=== PATIENT | male | born 1980 | race Caucasian/White ===

== ENCOUNTER 2019-02-13 18:00 | Emergency (ER) | payer BC ==
[2019-02-13] MEDS ORDERED: Pantoprazole 40 MG Tab.CR PO ONE (18:01)
[2019-02-13 18:48] LABS: CHLORIDE,CL 104 mEq/L (98-106); SODIUM,NA 141 mEq/L (136-145)
[2019-02-13] MEDS ORDERED: Aspirin 81 MG Tab.Chew PO ONE (18:48)
--- NOTE | 2019-02-13 18:53 | EDM.PDOC ---
ED HPI GENERAL MEDICAL PROBLEM - General Chief Complaint: Cardiovascular Problem Stated Complaint: heart attack symptoms Time Seen by Provider: 02/13/19 18:47 Source of Information: Reports: Patient History Limitations: Reports: No Limitations - History of Present Illness INITIAL COMMENTS - FREE TEXT/NARRATIVE: Som is a 39 year old male who presents to the ED with c/o episode of substernal chest pain and left arm numbness. Reports he was taking a nap and was lying on his arm, woke up and his left arm was numb and he had chest pain. He reports onset at 1730. Arm numbness has since resolved. Reports he still feels a little bit of chest pain but nothing significant. Did also have some dizziness described as lightheaded. He reports this has also subsided.Also reports shortness of breath, but nothnig more than baseline. He reports he is a 1 ppd smoker and always has a chronic cough. He has no known PMH, but reports he doesn't go to the doctor regularly. Is unsure if he has ever had his cholesterol checked. Denies any N/V/D, abdominal pain, neck pain, back pain. Reports prior to this he was feeling well. Chest Pain Score (Numeric/FACES): 2 - Related Data Allergies Allergy/AdvReac Type Severity Reaction Status Date / Time No Known Allergies Allergy Verified 02/13/19 18:35 Home Meds: Home Meds Pantoprazole Sodium [Protonix] 40 mg PO DAILY #30 tablet. 02/13/19 [Rx] Past Medical History - Past Health History Medical/Surgical History: Denies Medical/Surgical History Social & Family History - Family History Family Medical History: Noncontributory - Tobacco Use Smoking Status *Q: Current Every Day Smoker Years of Tobacco use: 20 Packs/Tins Daily: 1 - Caffeine Use Caffeine Use: Reports: Energy Drinks - Recreational Drug Use Recreational Drug Use: No ED ROS GENERAL - Review of Systems Review Of Systems: ROS reveals no pertinent complaints other than HPI. ED EXAM, GENERAL - Physical Exam Exam: See Below Exam Limited By: No Limitations General Appearance: Alert, WD/WN, No Apparent Distress Eye Exam: Bilateral Eye: EOMI, Normal Fundi, Normal Inspection, PERRL Head: Atraumatic, Normocephalic Neck: Normal Inspection, Supple, Non-Tender, Full Range of Motion Respiratory/Chest: No Respiratory Distress, Lungs Clear, Normal Breath Sounds, No Accessory Muscle Use, Chest Non-Tender Cardiovascular: Normal Peripheral Pulses, Regular Rate, Rhythm, No Edema, No Gallop, No JVD, No Murmur, No Rub GI/Abdominal: Normal Bowel Sounds, Soft, No Organomegaly, No Distention, No Abnormal Bruit, No Mass, Pelvis Stable, Tender (epigastrc area), Hernia (ventral ) Back Exam: Normal Inspection, Full Range of Motion, NT Extremities: Normal Inspection, Normal Range of Motion, Non-Tender, Normal Capillary Refill, No Pedal Edema Neurological: Alert, Oriented, CN II-XII Intact, Normal Cognition, Normal Gait, Normal Reflexes, No Motor/Sensory Deficits Psychiatric: Normal Affect, Normal Mood Skin Exam: Warm, Dry, Intact, Normal Color, No Rash EKG INTERPRETATION EKG Date: 02/13/19 Rhythm: NSR [place]: Normal P-Wave: Present QRS: Normal ST-T: Normal QT: Normal Comparison: NA - No Prior EKG Course - Vital Signs Last Recorded V/S: Last Vital Signs Temp 99.7 F 02/13/19 19:04 Pulse 92 02/13/19 19:04 Resp 14 02/13/19 19:04 BP 133/89 02/13/19 19:04 Pulse Ox 97 02/13/19 19:04 - Orders/Labs/Meds Labs: Laboratory Tests 02/13/19 02/13/19 02/13/19 Range/Units 18:30 18:30 18:30 WBC 9.1 (5.0-10.0) 10^3/uL RBC 5.02 (4.50-6.00) 10^6/uL Hgb 16.5 (14.0-18.0) g/dL Hct 46.1 (40.0-54.0) % MCV 91.8 (82.0-94.0) fL MCH 32.9 H (27.0-32.0) pg MCHC 35.8 (33.0-38.0) g/dL RDW Coeff of Helder 12.6 (11.0-15.0) % Plt Count 205 (150-400) 10^3/uL Neut % (Auto) 52.9 (35-85) % Lymph % (Auto) 38.0 (10-55) % [place] % (Auto) 6.7 (0-16) % Eos % (Auto) 2.1 (0-5) % Baso % (Auto) 0.3 (0-3) % Neut # (Auto) 4.81 (1.80-7.00) 10^3/uL Lymph # (Auto) 3.45 (1.00-4.80) 10^3/uL [place] # (Auto) 0.61 (0.00-0.80) 10^3/uL Eos # (Auto) 0.19 (0.00-0.45) 10^3/uL Baso # (Auto) 0.03 10^3/uL PT 10.2 (9.7-12.3) SEC INR 0.99 (0.92-1.18) APTT 25.7 (23.2-32.3) SEC Sodium 141 (136-145) mEq/L Potassium 4.3 (3.5-5.0) mEq/L Chloride 104 (98-106) mEq/L Carbon Dioxide 26 (21-32) mmol/L BUN 20 H (7-18) mg/dL Creatinine 1.2 (0.7-1.3) mg/dL Est Cr Clr Drug Dosing 91.61 mL/min Estimated GFR (MDRD) > 60 (>=60) mL/min Glucose 115 H (75-99) mg/dL Calcium 8.7 (8.4-10.1) mg/dL Lactate Dehydrogenase 131 (100-190) U/L Creatine Kinase 101 (35-232) U/L Troponin I < 0.017 (0.00-0.06) ng/mL Meds: Medications Discontinued Medications Generic Name Dose Route Start Last Admin Trade Name Freq PRN Reason Stop Dose Admin Aspirin 324 mg 02/13/19 18:48 02/13/19 18:22 Aspirin PO 02/13/19 18:49 324 mg ONETIME ONE Administration Pantoprazole Sodium 40 mg 02/13/19 19:08 02/13/19 19:12 Protonix Iv IVPUSH 02/13/19 19:09 40 mg ONETIME ONE Administration Pantoprazole Sodium 1 packet 02/13/19 19:14 02/13/19 19:17 Take Home: Pantoprazole 40 Mg, 1 Tab Pack PO 02/13/19 19:15 1 packet ONETIME ONE Administration Departure - Departure Time of Disposition: 19:08 Disposition: Home, Self-Care 01 Condition: Good Clinical Impression: Atypical chest pain, Lung nodule GERD (gastroesophageal reflux disease) Qualifiers: Esophagitis presence: esophagitis presence not specified Qualified Code(s): K21.9 - Gastro-esophageal reflux disease without esophagitis Prescriptions: Pantoprazole Sodium [Protonix] 40 mg PO DAILY #30 tablet.dr Instructions: Food Choices for Gastroesophageal Reflux Disease, Adult, Gastroesophageal Reflux Disease, Adult, [id number] Referrals: PCP,None [Primary Care Provider] - Forms: ED Department Discharge Additional Instructions: 1) Protonix daily to see if this improves chest pain 2) Avoid greasy/spicy foods, caffeine, and alcohol as these can worsen reflux 3) Recommend Symbicort twice daily 4) Chest xray shows 11 mm nodule of left mid lung. Will need chest CT. Recommend f/u out patient for this. 5) Follow up next week in clinic for recheck. Recommend patient has cholesterol checked. 6) Return to ED for any worsening symptoms or any other emergent needs
[2019-02-13] MEDS ORDERED: Pantoprazole 40 MG Vial IVPUSH ONE (19:08)
[2019-02-13] MEDS ORDERED: Take Home: Pantoprazole 40 MG Tab.CR, 1 Tab Pack PO ONE (19:14)
== END 2019-02-13 19:21 | disposition home or self-care (01) ==
LOC: CC.ED 18:00
DX: K21.9 Gastro-esophageal reflux disease without esophagitis (principal); R91.1 Solitary pulmonary nodule; F17.210 Nicotine dependence, cigarettes, uncomplicated; Z79.899 Other long term (current) drug therapy
CPT/HCPCS: 36415; 71046; 80048; 82550; 83615; 84484; 85025; 85610; 85730; 93005; 96374; 99285-25; A9270-GY; C9113

== ENCOUNTER 2021-07-11 06:38 | Emergency (ER) | payer BC ==
[2021-07-11] MEDS ORDERED: Ketorolac 30 MG/ML SDV IVPUSH ONE (06:47)
[2021-07-11] MEDS ORDERED: Sodium Chloride 0.9% 1,000 ML IV ONE (06:47)
[2021-07-11] MEDS ORDERED: Tamsulosin 0.4 MG Cap.ER PO ONE (07:29)
--- NOTE | 2021-07-11 07:35 | EDM.PDOC ---
ED HPI GENERAL MEDICAL PROBLEM - General Chief Complaint: Genitourinary Problem Stated Complaint: ?kidney stone Time Seen by Provider: 07/11/21 07:15 Source of Information: Reports: Patient History Limitations: Reports: No Limitations - History of Present Illness INITIAL COMMENTS - FREE TEXT/NARRATIVE: Som is a 41 yo male who presents to the ED with concerns of possible kidney stone. States the last couple of days it has been difficult for him to urinate. Denies any dysuria or blood in his urine. States he did have some left sided flank pain. Around 2 oclock this morning he woke up to worsening flank pain that radiated around to his groin. No prior history of kidney stones. Upon arrival pain was a 5 out of 10 but was worse earlier this morning. Patient did take ibuprofen and beano at home without relief. States he took 3 hot tub baths which did make it feel a little better. Bowel movements have been fairly normal. Upon my arrival pain is barely noticeable after being given the Toradol. Treatments [employer]: Reports: NSAIDS Left Flank Pain Score (Numeric/FACES): 2 - Related Data Allergies Allergy/AdvReac Type Severity Reaction Status Date / Time No Known Allergies Allergy Verified 07/11/21 06:46 Home Meds: Home Meds . [No Known Home Meds] 07/11/21 [History] Past Medical History - Past Health History Medical/Surgical History: Denies Medical/Surgical History Social & Family History - Family History Family Medical History: No Pertinent Family History - Tobacco Use Tobacco Use Status *Q: Current Every Day Tobacco User Years of Tobacco use: 20 Packs/Tins Daily: 1 - Caffeine Use Caffeine Use: Reports: Energy Drinks - Recreational Drug Use Recreational Drug Use: No ED ROS GENERAL - Review of Systems Review Of Systems: See Below Constitutional: Denies: Fever, Chills HEENT: Reports: No Symptoms Respiratory: Reports: Cough. Denies: Shortness of Breath, Wheezing Cardiovascular: Denies: Chest Pain GI/Abdominal: Reports: Abdominal Pain, Nausea, Vomiting. Denies: Constipation, Diarrhea, Distension : Reports: Flank Pain, Urgency, Urinary Retention. Denies: Dysuria Musculoskeletal: Reports: No Symptoms Skin: Reports: No Symptoms Neurological: Reports: No Symptoms ED EXAM, RENAL/ - Physical Exam Exam: See Below Exam Limited By: No Limitations General Appearance: Alert, WD/WN, No Apparent Distress Head: Atraumatic, Normocephalic Neck: Normal Inspection Respiratory/Chest: No Respiratory Distress, Lungs Clear, Normal Breath Sounds, No Accessory Muscle Use Cardiovascular: Regular Rate, Rhythm, No Murmur GI/Abdominal: Normal Bowel Sounds, Soft, Non-Tender, No Organomegaly, No Distention, No Mass Back Exam: No: CVA Tenderness (L), CVA Tenderness (R) Extremities: Normal Inspection, No Pedal Edema Neurological: Alert, Oriented, No Motor/Sensory Deficits Psychiatric: Normal Affect, Normal Mood Course - Vital Signs Last Recorded V/S: Last Vital Signs Temp 97.4 F 07/11/21 06:38 Pulse 91 07/11/21 06:38 Resp 18 07/11/21 06:38 BP 122/80 07/11/21 07:34 Pulse Ox 96 07/11/21 06:38 - Orders/Labs/Meds Orders: Active Orders 24 hr Category Date Time Status Abdomen Pelvis wo Cont [CT] Stat Exams 07/11/21 06:47 Taken Labs: Laboratory Tests 07/11/21 07/11/21 Range/Units 06:47 07:57 WBC 11.5 H (4.0-11.0) 10^3/uL RBC 5.10 (4.50-6.00) x10^6/uL Hgb 16.2 (14.0-18.0) g/dL Hct 47.2 (42.0-52.0) % MCV 92.5 (83.0-97.0) fL MCH 31.8 (27.0-32.0) pg MCHC 34.3 (32.0-36.0) g/dL RDW Coeff of Helder 12.2 (11.0-15.0) % Plt Count 222 (150-400) 10^3/uL Immature Gran % (Auto) 0.3 (0.0-4.9) % Neut % (Auto) 85.4 H (41-71) % Lymph % (Auto) 10.9 L (24-44) % [place] % (Auto) 3.1 (0-10) % Eos % (Auto) 0.1 (0-6) % Baso % (Auto) 0.2 (0-1) % Neut # (Auto) 9.79 H (1.80-8.00) x10^3/uL Lymph # (Auto) 1.25 (0.60-5.00) 10^3/uL [place] # (Auto) 0.35 (0.00-1.50) 10^3/uL Eos # (Auto) 0.01 (0.00-1.50) 10^3/uL Baso # (Auto) 0.02 (0.00-0.50) 10^3/uL Immature Gran # (Auto) 0.04 (0.00-0.49) 10^3/uL Urine Color Dark yellow (YELLOW) Urine Appearance Clear (CLEAR) Urine pH 6.0 (4.5-8.0) Ur Specific [place] 1.020 (1.003-1.020) Urine Protein Negative (NEGATIVE) mg/dL Urine Glucose (UA) Negative (NEGATIVE) mg/dL Urine Ketones Negative (NEGATIVE) mg/dL Urine Occult Blood Large H (NEGATIVE) Urine Nitrite Negative (NEGATIVE) Urine Bilirubin Negative (NEGATIVE) Urine Urobilinogen 0.2 (0.2-1.0) EU/dL Ur Leukocyte Esterase Negative (NEGATIVE) Urine RBC 50-75 H (0-5) /HPF Urine WBC 0-5 (0-5) /HPF Ur Squamous Epith Cells Occasional H (NOT SEEN) /HPF Urine Mucus Many H (NOT SEEN) /HPF Meds: Medications Discontinued Medications Generic Name Dose Route Start Last Admin Trade Name Freq PRN Reason Stop Dose Admin Sodium Chloride 1,000 mls @ 999 mls/hr 07/11/21 06:47 07/11/21 06:50 Normal Saline IV 07/11/21 07:47 999 mls/hr .BOLUS ONE Administration Ketorolac Tromethamine 30 mg 07/11/21 06:47 07/11/21 06:50 Ketorolac 30 Mg/Ml Sdv IVPUSH 07/11/21 06:48 30 mg ONETIME ONE Administration Tamsulosin HCl 0.4 mg 07/11/21 07:29 07/11/21 07:32 Tamsulosin 0.4 Mg Cap.Er PO 07/11/21 07:30 0.4 mg ONETIME ONE Administration Departure - Departure Time of Disposition: 08:16 Disposition: Home, Self-Care 01 Clinical Impression: Kidney stone - Discharge Information Instructions: Kidney Stones, [id number] Referrals: Stan Hogan MD [Primary Care Provider] - Forms: ED Department Discharge Additional Instructions: 1) Small stone noted which will likely pass on your own. 2) Advise taking Flomax 0.4mg daily until stone passes 3) Strain urine to confirm passing of stone 4) Toradol 10mg tablets - 1 every 8 hours as needed for pain, sent to local pharmacy 5) Encourage to refrain from soda, energy drinks, etc... 6) Increase water intake 7) If any fevers or concerns, advise reevaluation. Sepsis Event Note (ED) - Focused Exam Vital Signs: Vital Signs Temp Pulse Resp BP BP Pulse Ox 07/11/21 07:34 122/80 07/11/21 07:03 142/82 H 07/11/21 06:38 97.4 F 91 18 150/104 H 96 - Problem List & Annotations (1) Kidney stone SNOMED Code(s): 70044109 Code(s): N20.0 - CALCULUS OF KIDNEY Status: Acute Current Visit: Yes - Problem List Review Problem List Initiated/Reviewed/Updated: Yes - My Orders Last 24 Hours: My Active Orders 07/11/21 06:47 Abdomen Pelvis wo Cont [CT] Stat - Assessment/Plan Last 24 Hours: My Active Orders 07/11/21 06:47 Abdomen Pelvis wo Cont [CT] Stat Plan: Upon arrival patient had already received 30mg of Toradol which gave him significant relief. Currently doesn't have any discomfort. After reviewing the CT scan their was a small stone, less than 3mm at the distal ureter on the left. Patient was given 1000ml's of NS as well. Pain had completed resolved. Will discharge patient home with urine strainer as well. See additional instructions.
== END 2021-07-11 08:30 | disposition home or self-care (01) ==
LOC: CC.ED 06:38
DX: N20.2 Calculus of kidney with calculus of ureter (principal); Z72.0 Tobacco use
CPT/HCPCS: 36415; 74176; 81001; 85025; 96374; 99284; A9270; J1885; J7030

== ENCOUNTER 2021-09-04 12:04 | Emergency (ER) | payer BC, OTHER ==
--- NOTE | 2021-09-04 12:57 | EDM.PDOC ---
ED HPI GENERAL MEDICAL PROBLEM - General Chief Complaint: General Stated Complaint: RT SHLDR/RT ABD AREA Time Seen by Provider: 09/04/21 12:25 Source of Information: Reports: Patient History Limitations: Reports: No Limitations - History of Present Illness INITIAL COMMENTS - FREE TEXT/NARRATIVE: Som is a 41 yo male who presents to the ED with complaints of right shoulder and right abdominal pain. 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 States they bent over to pick it up and once they started lifting it he felt a strain up in his shoulder and a pop down by his abdomen. Admits both feel like muscle but d/t work needed it documented. Right Shoulder Pain Score (Numeric/FACES): 3 - Related Data Allergies Allergy/AdvReac Type Severity Reaction Status Date / Time No Known Allergies Allergy Verified 09/04/21 12:11 Home Meds: Home Meds Cyclobenzaprine [Flexeril] 10 mg PO TID #15 tab 09/04/21 [Rx] Meloxicam 15 mg PO DAILY #14 tablet 09/04/21 [Rx] Past Medical History - Past Health History Medical/Surgical History: Denies Medical/Surgical History - Infectious Disease History Infectious Disease History: Reports: None Social & Family History - Family History Family Medical History: No Pertinent Family History - Tobacco Use Tobacco Use Status *Q: Current Every Day Tobacco User Years of Tobacco use: 20 Packs/Tins Daily: 0.5 - Caffeine Use Caffeine Use: Reports: Coffee, Soda ED ROS GENERAL - Review of Systems Review Of Systems: See Below Constitutional: Reports: No Symptoms HEENT: Reports: No Symptoms Respiratory: Reports: No Symptoms Cardiovascular: Reports: No Symptoms GI/Abdominal: Reports: Abdominal Pain (with movement). Denies: Nausea, Vomiting Musculoskeletal: Reports: Neck Pain, Shoulder Pain Skin: Reports: No Symptoms Neurological: Reports: No Symptoms. Denies: Numbness, Paresthesia, Tingling, Difficulty Walking Psychiatric: Reports: No Symptoms ED EXAM, GENERAL - Physical Exam Exam: See Below Exam Limited By: No Limitations General Appearance: Alert, No Apparent Distress Neck: Full Range of Motion, Other (negative spurling test. Tenderness with palpation over right trapezius muscle. ). No: Tender Midline GI/Abdominal: Normal Bowel Sounds, Soft, No Organomegaly, No Distention, Pelvis Stable, Tender (mild right oblique tenderness with palpation. ). No: Hernia Back Exam: Paraspinal Tenderness Extremities: Normal Inspection, Normal Range of Motion, Other (Rotator cuff intact. Negative drop arm, speeds, Hawk[place], apprehension. ) Neurological: Alert, Oriented, Normal Cognition, No Motor/Sensory Deficits Skin Exam: Warm, Dry, Intact Course - Vital Signs Last Recorded V/S: Last Vital Signs Temp 98.9 F 09/04/21 12:11 Pulse 110 H 09/04/21 12:11 Resp 20 09/04/21 12:11 BP 133/85 09/04/21 12:11 Pulse Ox 96 09/04/21 12:11 - Orders/Labs/Meds Orders: Active Orders 24 hr Category Date Time Status Abdomen 2V AP Flat Upright [CR] Stat Exams 09/04/21 12:19 Taken Shoulder Comp Rt [CR] Stat Exams 09/04/21 12:19 Taken Departure - Departure Time of Disposition: 12:57 Disposition: Home, Self-Care 01 Clinical Impression: Strain of right trapezius muscle Qualifiers: Encounter type: initial encounter Qualified Code(s): S46.811A - Strain of other muscles, fascia and tendons at shoulder and upper arm level, right arm, initial encounter Abdominal wall strain Qualifiers: Encounter type: initial encounter Qualified Code(s): S39.011A - Strain of muscle, fascia and tendon of abdomen, initial encounter - Discharge Information Prescriptions: Cyclobenzaprine [Flexeril] 10 mg PO TID #15 tab Meloxicam 15 mg PO DAILY #14 tablet Instructions: Muscle Strain, [id number] Referrals: PCP,None [Primary Care Provider] - Forms: ED Department Discharge Additional Instructions: 1) Meloxicam 15mg daily, take with food 2) Flexeril 10mg - 1 tablet every 8 hours as needed for muscle tightness/spasm 3) Work restrictions filled out today 4) Recheck in clinic in 1 week, sooner if any concerns Sepsis Event Note (ED) - Evaluation Sepsis Screening Result: No Definite Risk - Focused Exam Vital Signs: Vital Signs Temp Pulse Resp BP Pulse Ox 09/04/21 12:11 98.9 F 110 H 20 133/85 96 - Problem List & Annotations (1) Abdominal wall strain SNOMED Code(s): 82526248, 407609237 Code(s): S39.011A - STRAIN OF MUSCLE, FASCIA AND TENDON OF ABDOMEN, INIT ENCNTR Status: Acute Current Visit: Yes Qualifiers: Encounter type: initial encounter Qualified Code(s): S39.011A - Strain of muscle, fascia and tendon of abdomen, initial encounter (2) Strain of right trapezius muscle SNOMED Code(s): 985428913 Code(s): S46.811A - STRAIN OF MUSC/FASC/TEND AT SHLDR/UP ARM, RIGHT ARM, INIT Status: Acute Current Visit: Yes Qualifiers: Encounter type: initial encounter Qualified Code(s): S46.811A - Strain of other muscles, fascia and tendons at shoulder and upper arm level, right arm, initial encounter - My Orders Last 24 Hours: My Active Orders 09/04/21 12:19 Abdomen 2V AP Flat Upright [CR] Stat Shoulder Comp Rt [CR] Stat - Assessment/Plan Last 24 Hours: My Active Orders 09/04/21 12:19 Abdomen 2V AP Flat Upright [CR] Stat Shoulder Comp Rt [CR] Stat Plan: X-rays of the right shoulder and abdomen were unremarkable today. Discussed soft tissue/muscle injuries. May apply ice 20 minutes at a time, 4-5 times a day. May alternate with heat as well. Recheck in clinic in 1 week, advised to return sooner if any concerns. Discussed differential etiologies as well today.
== END 2021-09-04 13:17 | disposition home or self-care (01) ==
LOC: CC.ED 12:04
DX: S46.811A Strain of other muscles, fascia and tendons at shoulder and upper arm level, right arm, initial encounter (principal); S39.011A Strain of muscle, fascia and tendon of abdomen, initial encounter; Z72.0 Tobacco use; Z79.899 Other long term (current) drug therapy; X50.9XXA Other and unspecified overexertion or strenuous movements or postures, initial encounter; Y99.0 Civilian activity done for income or pay
CPT/HCPCS: 73030-RT; 74019; 99284

== ENCOUNTER 2024-09-26 15:52 | Emergency (ER) | payer BC ==
[2024-09-26 16:14] LABS: APPEARANCE,URINE CLEAR (CLEAR); BASOPHILS ABSOLUTE AUTO 0.03 10^3/uL (0.00-0.50); BASOPHILS PERCENT AUTO 0.3 % (0-1); BILIRUBIN,URINE NEGATIVE (NEGATIVE); COLOR,URINE LIGHT YELLOW (YELLOW); EOSINOPHILS ABSOLUTE AUTO 0.05 10^3/uL (0.00-1.50); EOSINOPHILS PERCENT AUTO 0.5 % (0-6); GLUCOSE,URINE NEGATIVE (NEGATIVE); HEMATOCRIT 47.1 % (42.0-52.0); HEMOGLOBIN 16.1 g/dL (14.0-18.0); IMMATURE GRAN ABSOLUTE AUTO 0.02 10^3/uL (0.00-0.49); IMMATURE GRAN PERCENT AUTO 0.2 % (0.0-4.9); KETONES,URINE NEGATIVE (NEGATIVE); LEUKOCYTE ESTERASE,URINE NEGATIVE (NEGATIVE); LYMPHOCYTES ABSOLUTE AUTO 2.97 10^3/uL (0.60-5.00); LYMPHOCYTES PERCENT AUTO 29.6 % (24-44); MEAN CORPUSCULAR HEMOGLOBIN 32.3 pg (27.0-32.0); MEAN CORPUSCULAR HGB CONC 34.2 g/dL (32.0-36.0); MEAN CORPUSCULAR VOLUME 94.4 fL (83.0-97.0); MONOCYTES ABSOLUTE AUTO 0.81 10^3/uL (0.00-1.50); MONOCYTES PERCENT AUTO 8.1 % (0-10); NEUTROPHILS ABSOLUTE AUTO 6.17 x10^3/uL (1.80-8.00); NEUTROPHILS PERCENT AUTO 61.3 % (41-71); NITRITE,URINE NEGATIVE (NEGATIVE); OCCULT BLOOD,URINE NEGATIVE (NEGATIVE); PLATELET COUNT,PLT 214 10^3/uL (150-400); PROTEIN,URINE NEGATIVE (NEGATIVE); RED BLOOD CELL COUNT 4.99 x10^6/uL (4.50-6.00); UROBILINOGEN,URINE 0.2 EU/dL (0.2-1.0); WHITE BLOOD CELL COUNT,WBC 10.1 10^3/uL (4.0-11.0)
[2024-09-26 16:27] LABS: ALANINE AMINOTRANSFERASE,ALT 62 U/L (12-78); ALKALINE PHOSPHATASE 126 U/L (46-116); ASPARTATE AMNIOTRANSFERASE,AST 29 U/L (15-37); BILIRUBIN TOTAL 0.9 mg/dL (0.0-1.0); BLOOD UREA NITROGEN,BUN 12 mg/dL (7-18); CARBON DIOXIDE,CO2 24 mmol/L (21-32); CHLORIDE,CL 101 mEq/L (98-106); CREATININE 1.2 mg/dL (0.7-1.3); GLUCOSE RANDOM 102 mg/dL (75-99); LIPASE 78 U/L (16-77); PROTEIN TOTAL,TP 7.5 g/dL (6.4-8.2); SODIUM,NA 138 mEq/L (136-145)
[2024-09-26 16:28] LABS: C-REACTIVE PROTEIN < 0.50 mg/dL (<=0.50); ESTIMATED GFR 77 mL/min (>=60)
[2024-09-26] MEDS: HYDROmorphone 1 MG/ML Syringe IVPUSH ONE (16:38)
[2024-09-26] MEDS: Sodium Chloride 0.9% 1,000 ML IV ONE (16:39)
== END 2024-09-26 17:55 ==
LOC: CC.ED 15:52
DX: K37 Unspecified appendicitis (principal)
CPT/HCPCS: 36415; 74176; 80053; 81003; 83690; 85025; 86140; 96361; 96374; 99284; 99284-25; J1171; J7030